=== PATIENT | male | born 1995 | race African-American/Black ===

== ENCOUNTER 2018-04-20 17:28 | Emergency (ER) | payer SELFPAY ==
[~2018-04-20] VITALS: Ht 167.6 cm; Wt 75.0 kg
[2018-04-20 18:33] LABS: BASOPHILS % 0.7 % (0.0-2.0); EOSINOPHILS % 5.3 % (0.0-5.0); HEMATOCRIT. 43.6 % (42.0-52.0); HEMOGLOBIN. 14.8 g/dL (14.0-18.0); LYMPHOCYTES % 29.9 % (20.0-50.0); MEAN CORPUSCULAR HEMOGLOBIN 30.9 pg (28.0-32.0); MEAN PLATELET VOLUME 6.8 fl (7.4-10.4); MONOCYTES % 9.5 % (2.0-8.0); NEUTROPHILS % 54.6 % (40.0-76.0); PLATELET 379 x1000/uL (130-400); RED BLOOD CELL COUNT 4.79 mill/uL (4.7-6.1); RED CELL DISTRIBUTION WIDTH 13.6 % (11.6-14.6)
[2018-04-20 18:39] LABS: CHLORIDE 106 mEq/L (98-107)
[2018-04-20 18:43] LABS: D-DIMER 0.49 mg/L FEU (<0.50); INR 1.2; PROTHROMBIN TIME 12.7 sec (9.4-11.6)
[2018-04-20 19:40] VITALS: BP 128/73
== END 2018-04-20 20:07 | disposition home or self-care (01) ==
LOC: ER 17:28
DX: R06.02 Shortness of breath (principal); F12.10 Cannabis abuse, uncomplicated; F41.9 Anxiety disorder, unspecified
CPT/HCPCS: 36415; 71045; 80053; 83880; 84484; 85025; 85379; 85610; 93005; 99285